=== PATIENT | male | born 1990 | race Caucasian/White ===

== ENCOUNTER 2020-06-16 12:46 | Outpatient (CLI) | payer BC, SELFPAY ==
--- NOTE | ~2020-06-16 | XR_ITS ---
EXAMINATION: XR chest 2V DATE: 06/16/2020 14:19 INDICATION: Shortness of breath. TECHNIQUE: Frontal and lateral views of the chest were obtained. COMPARISON: Neck CT 10/10/2015 FINDINGS: The chest demonstrates clear lungs without pneumonia, pleural effusion, or pneumothorax. Th e heart size is normal. IMPRESSION: 1. No acute cardiopulmonary disease. Reviewed, dictated and finalized at location B.
--- NOTE | 2020-06-24 15:39 | P.PCNSIX_ITS ---
Six Minute Walk Six Minute Walk: DOS: 06/16/2020 REQUESTING: Dr. Jerome Velasco, [facility] REASON FOR TESTING: hypoxia SIX MINUTE WALK This test was conducted per ATS guidelines with the patient breathing room air. Initial saturation 98%, pulse 65. With walking saturation remained 95% and above. Distance walked was 1100 feet/335 meters. He did not stop to rest during the walk. Pulse maximum was 91 and returned to baseline after recovery IMPRESSION: Normal study without need for supplemental O2 with exertion. Chrissy Mendosa MD
--- NOTE | 2020-06-24 15:49 | P.PCNPFT_ITS ---
PFT Interpretation PFT Interpretation: DOS: 06/16/2020 REQUESTING: Dr Jerome Velasco REASON FOR TESTING: hypoxia; mild intermittent asthma PULMONARY FUNCTION TESTS Results are reliable and reproducible. Spirometry: FEV1 96%, normal, 3.88 L. FVC 94%, normal. FEV1% is normal. FEF25- 75% is normal 91%. No change with bronchodilator. Lung volumes: TLC 94%. RV 83%. No air trapping. Increased airway resistance 222%. Diffusion: DLCO 105%, normal. Flow volume loop: Normal. IMPRESSION: Increase in airway resistance, otherwise normal study. This pattern can be seen in asthma. If there is concern about the diagnosis of asthma, consider methacholine challenge which can help rule out asthma. Chrissy Mendosa MD
== END 2020-06-16 12:47 | disposition home or self-care (01) ==
DX: J45.20 Mild intermittent asthma, uncomplicated (principal)
CPT/HCPCS: 71046; 94060; 94618; 94726; 94729